=== PATIENT | female | born 1965 | race Caucasian/White ===

== ENCOUNTER 2017-02-25 15:48 | Emergency (ER) | payer OTHER ==
[~2017-02-25] VITALS: Ht 152.4 cm; Wt 61.2 kg
--- NOTE | 2017-02-25 15:58 | NUR ---
SANAZ FROM HOME DT SEVERE ABDOMINAL PAIN, 10/10, NON RADIATING, PATIENT REPORTED NAUSEA AND VOMITTING,. SKIN IS WARM TO TOUCH AND NON DIAPHORETIC. AFEBRILE. VSS
[2017-02-25] MEDS ORDERED: ONDANSETRON HCL/PF 4 MG/2 ML VIAL IVP ONE (16:00)
[2017-02-25] MEDS ORDERED: HYDROMORPHONE INJ 2 MG/ML DISP.SYRIN IV ONE (16:00)
[2017-02-25] MEDS ORDERED: IV NS 0.9% 1,000 ML BAG IV ONE (16:00)
[2017-02-25] MEDS ORDERED: ONDANSETRON HCL/PF 4 MG/2 ML VIAL ONE ×2 (16:01→17:25)
[2017-02-25] MEDS ORDERED: HYDROMORPHONE INJ 2 MG/ML DISP.SYRIN ONE ×4 (16:01→20:33)
[2017-02-25 16:17] LABS: BASOPHILS # (AUTO) 0.2 /CMM (0.0-0.2); BASOPHILS % (AUTO) 1.8 % (0.0-2.0); EOSINOPHILS # (AUTO) 0.1 /CMM (0.0-0.7); EOSINOPHILS % (AUTO) 0.6 % (0.0-6.0); HEMATOCRIT 45 % (33-45); HEMOGLOBIN 15.3 g/dL (11.5-14.8); LYMPHOCYTES # (AUTO) 1.1 /CMM (0.8-4.8); LYMPHOCYTES % (AUTO) 9.3 % (20.0-44.0); MEAN CORPUSCULAR HEMOGLOBIN 30 PG (26.0-33.0); MEAN CORPUSCULAR HGB CONC 34 g/dl (31.0-36.0); MEAN CORPUSCULAR VOLUME 88 fL (82-100); MONOCYTES # (AUTO) 0.5 /CMM (0.1-1.30); MONOCYTES % (AUTO) 3.9 % (2.0-12.0); NEUTROPHILS # (AUTO) 9.9 /CMM (1.8-8.9); NEUTROPHILS % (AUTO) 84.4 % (43.0-81.0); PLATELET COUNT (AUTO) 251 /CMM (150-450); RDW COEFFICIENT OF VARIATION 13.5 (11.5-15.0); RED BLOOD CELL COUNT(AUTO) 5.16 MIL/uL (4.0-5.2); WHITE BLOOD COUNT (AUTO) 11.8 K/uL (4.3-11.0)
[2017-02-25 16:26] LABS: CALCIUM, SERUM 9.4 mg/dL (8.5-10.1); CREATININE 0.7 mg/dL (0.6-1.3)
[2017-02-25 16:32] LABS: ALBUMIN 4.1 g/dL (3.4-5.0); BILIRUBIN,TOTAL 0.5 mg/dL (0.2-1.0); TOTAL PROTEIN, SERUM 7.9 g/dL (6.4-8.2)
[2017-02-25] MEDS ORDERED: HYDROMORPHONE 1 MG/1 ML DISP.SYRIN IV ONE ×3 (17:00→20:30)
[2017-02-25] MEDS ORDERED: BISACODYL (5 MG) 5 MG TABLET.DR ONE (17:26)
[2017-02-25] MEDS ORDERED: BISACODYL (5 MG) 5 MG TABLET.DR PO ONE (17:30)
[2017-02-25] MEDS ORDERED: ONDANSETRON HCL/PF - ER 4 MG/2 ML VIAL IV ONE (17:30)
[2017-02-25] MEDS ORDERED: Magnesium 1 GM/2 ML VIAL IV ONE (18:00)
[2017-02-25] MEDS ORDERED: Magnesium 1GM/D5W 100ML PREMIX 100 ML IV ONE (18:05)
[2017-02-25] MEDS: Magnesium 1 GM/2 ML VIAL IV ONE ×2 (18:24→19:17)
[2017-02-25] MEDS ORDERED: KETOROLAC TROMETHAMINE 15 MG/ML VIAL ONE (18:25)
[2017-02-25] MEDS ORDERED: KETOROLAC TROMETHAMINE INJ 30 MG/ML VIAL IV ONE (18:30)
[2017-02-25] MEDS ORDERED: ONDANSETRON 4 MG TAB.RAPDIS ONE (20:50)
[2017-02-25 20:54] VITALS: BP 140/78
--- NOTE | 2017-02-25 20:55 | NUR ---
Patient discharged to home in stable condition. Written and verbal after care instructions given. Patient verbalizes understanding of instruction.
[2017-02-25] MEDS ORDERED: ONDANSETRON 4 MG TAB.RAPDIS SL ONE (21:00)
== END 2017-02-25 20:55 | disposition home or self-care (01) ==
LOC: ER 15:51
DX: R10.84 Generalized abdominal pain (principal); Z88.5 Allergy status to narcotic agent; Z88.8 Allergy status to other drugs, medicaments and biological substances
CPT/HCPCS: 36415; 80048; 80076; 83690; 85025; 96361; 96374; 96375; 96376; 99284; A4606; J1170 ×4; J1885; J2405 ×3; J3475; J7030; Q0162; Z7610